=== PATIENT | male | born 1930 | race Caucasian/White ===

== ENCOUNTER 2017-04-09 23:28 | Emergency (ER) | payer MEDICARE, BC ==
[~2017-04-09] VITALS: Ht 182.9 cm; Wt 75.0 kg
[~2017-04-09 23:28] MED LIST: ASPI81 PO; FENO160T2 PO; METO25 PO; ROSU40 PO; VITA10002 PO
[2017-04-09 23:43] VITALS: BP 156/68; PULSE 64; RESP 16; TEMP 99.1; O2SAT 100
[2017-04-10] MEDS ORDERED: SODIUM CHLORIDE 0.9% FLUSH 5 ML FLUSH IV FLUSH PRN (00:15)
[2017-04-10 00:19] VITALS: RESP 16
--- NOTE | 2017-04-10 00:25 | PD ---
HPI Chief Complaint: Neuro Symptoms/ Deficits Time Seen by Provider: 00:13 Travel History International Travel<30 days: No Contact w/Intl Traveler<30days: No Traveled to known affect area: No History of Present Illness HPI 87-year-old male patient presents to the ER brought in by EMS, apparently his significant other stated to EMS that he has not been behaving normally, more disoriented than usual. Patient himself states that he has been dizzy but denies any other issues. He denies any fevers, vomiting, abdominal pain, chest pains, shortness of breath, or any other symptoms. Modifying Factors: None Associated Signs & Symptoms: Altered mental status Risk Factors: Elderly PFSH Past Medical History Anemia: Yes Arthritis: Yes Asthma: No Autoimmune Disease: No Blood Disorders: No Heart Rhythm Problems: Yes Cancer: No Cardiovascular Problems: Yes High Cholesterol: Yes Chest Pain: Yes COPD: No Coronary Artery Disease: Yes Diabetes: No Diminished Hearing: Yes (BILAT HEARING AIDS) Endocrine: No Gastrointestinal Disorders: No Genitourinary: Yes Hypertension: Yes Immune Disorder: No Inguinal Hernia: Yes (BILAT) Musculoskeletal: Yes Neurologic: No Psychiatric: No Reproductive: No Respiratory: No Immunizations Current: Yes Pneumonia: Yes Shingles: Yes Sleep Apnea: No Thyroid Disease: No Tetanus Vaccination: < 5 Years Influenza Vaccination: Yes Past Surgical History Abdominal Surgery: Yes (DOUBLE HERNIA) Cardiac Surgery: Yes (X 2 ANGIOPLASTY) Endocrine Surgery: No Genitourinary Surgery: Yes (SCRAPING OF THE PROSTATE) Insulin Pump: No 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) Neurologic Surgery: No Thoracic Surgery: No Other Surgery: Yes (BILAT SHOUDERS) Social History Alcohol Use: No Tobacco Use: No (QUIT 45+ YRS 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) Substance Use: No Allergies-Medications (Allergen,Severity, Reaction): Coded Allergies: gatifloxacin (Unverified Allergy, Severe, HIVES, 04/09/17) ibuprofen (Unverified Allergy, Severe, Hives, 04/09/17) salsalate (Unverified Allergy, Severe, Hives, 04/09/17) bacitracin (Unverified Allergy, Unknown, 04/09/17) gramicidin D (Unverified Allergy, Unknown, 04/09/17) metronidazole (Unverified Allergy, Unknown, 04/09/17) neomycin (Unverified Allergy, Unknown, 04/09/17) polymyxin B (Unverified Allergy, Unknown, 04/09/17) Reported Meds & Prescriptions Reported Meds & Active Scripts Active Review of Systems ROS Limitations: Altered Mental Status Physical Exam Narrative GENERAL: Well-developed elderly white male patient currently in no acute distress. Awake, alert, not oriented. SKIN: Focused skin assessment warm/dry. HEAD: Atraumatic. Normocephalic. EYES: Pupils equal and round. No scleral icterus. No injection or drainage. ENT: No nasal bleeding or discharge. Mucous membranes pink and moist. NECK: Trachea midline. No JVD. CARDIOVASCULAR: Regular rate and rhythm. No murmur appreciated. RESPIRATORY: No accessory muscle use. Clear to auscultation. Breath sounds equal bilaterally. GASTROINTESTINAL: Abdomen soft, non-tender, nondistended. Hepatic and splenic margins not palpable. MUSCULOSKELETAL: No obvious deformities. No clubbing. No cyanosis. No edema. NEUROLOGICAL: Awake and alert. No obvious cranial nerve deficits. Motor grossly within normal limits. Normal speech. PSYCHIATRIC: Appropriate mood and affect; insight and judgment normal. Data Data Last Documented VS Vital Signs Date Time Temp Pulse Resp B/P (MAP) Pulse Ox O2 Delivery O2 Flow Rate FiO2 04/10/17 00:19 16 04/09/17 23:43 99.1 64 156/68 (97) 100 Orders Orders Complete Blood Count With Diff (04/10/17 00:13) Comprehensive Metabolic Panel (04/10/17 00:13) Creatine Kinase (Cpk) (04/10/17 00:13) Prothrombin Time / Inr (Pt) (04/10/17 00:13) Act Partial Throm Time (Ptt) (04/10/17 00:13) Troponin I (04/10/17 00:13) Urinalysis - C+S If Indicated (04/10/17 00:13) Blood Culture (04/10/17 00:13) Chest, Single Ap (04/10/17 00:13) Ct Brain W/O Iv Contrast(Rout) (04/10/17 00:13) Blood Glucose (04/10/17 00:13) Ecg Monitoring (04/10/17 00:13) Iv Access Insert/Monitor (04/10/17 00:13) Oximetry (8/28/17 00:13) Sodium Chloride 0.9% Flush (Ns Flush) (04/10/17 00:15) CKMB (04/10/17 00:30) CKMB% (04/10/17 00:30) Labs Laboratory Tests Test 04/10/17 00:30 04/10/17 02:45 White Blood Count 8.1 TH/MM3 Red Blood Count 4.47 MIL/MM3 Hemoglobin 11.6 GM/DL Hematocrit 35.3 % Mean Corpuscular Volume 79.0 FL Mean Corpuscular Hemoglobin 26.1 PG Mean Corpuscular Hemoglobin Concent 33.0 % Red Cell Distribution Width 16.0 % Platelet Count 283 TH/MM3 Mean Platelet Volume 8.3 FL Neutrophils (%) (Auto) 60.6 % Lymphocytes (%) (Auto) 23.4 % Monocytes (%) (Auto) 8.1 % Eosinophils (%) (Auto) 6.8 % Basophils (%) (Auto) 1.1 % Neutrophils # (Auto) 4.9 TH/MM3 Lymphocytes # (Auto) 1.9 TH/MM3 Monocytes # (Auto) 0.7 TH/MM3 Eosinophils # (Auto) 0.5 TH/MM3 Basophils # (Auto) 0.1 TH/MM3 CBC Comment DIFF FINAL Differential Comment Prothrombin Time 11.6 SEC Prothromb Time International Ratio 1.0 RATIO Activated Partial Thromboplast Time 33.6 SEC Blood Urea Nitrogen 18 MG/DL Creatinine 1.20 MG/DL Random Glucose 98 MG/DL Total Protein 7.1 GM/DL Albumin 3.6 GM/DL Calcium Level 9.0 MG/DL Alkaline Phosphatase 194 U/L Aspartate Amino Transf (AST/SGOT) 31 U/L Alanine Aminotransferase (ALT/SGPT) 21 U/L Total Bilirubin 0.6 MG/DL Sodium Level 135 MEQ/L Potassium Level 4.1 MEQ/L Chloride Level 101 MEQ/L Carbon Dioxide Level 27.5 MEQ/L Anion Gap 7 MEQ/L Estimat Glomerular Filtration Rate 58 ML/MIN Total Creatine Kinase 539 U/L Creatine Kinase MB 2.1 NG/ML Creatine Kinase MB % 0.4 % Troponin I LESS THAN 0.02 NG/ML Urine Color YELLOW Urine Turbidity CLEAR Urine pH 6.5 Urine Specific [place] 1.022 Urine Protein NEG mg/dL Urine Glucose (UA) NEG mg/dL Urine Ketones NEG mg/dL Urine Occult Blood NEG Urine Nitrite NEG Urine Bilirubin NEG Urine Urobilinogen LESS THAN 2.0 MG/DL Urine Leukocyte Esterase NEG Urine WBC 1 /hpf Microscopic Urinalysis Comment CATH-CULT NOT IND MDM Medical Decision Making Medical Screen Exam Complete: Yes Emergency Medical Condition: Yes Medical Record Reviewed: Yes Interpretation(s) EKG shows NSR, no ST elevation or depression, and no arrhythmias. No significant T-wave inversions. Laboratory Tests Test 04/10/17 00:30 04/10/17 02:45 Red Blood Count 4.47 MIL/MM3 (4.50-5.90) Hemoglobin 11.6 GM/DL (13.0-17.0) Hematocrit 35.3 % (39.0-51.0) Mean Corpuscular Volume 79.0 FL (80.0-100.0) Mean Corpuscular Hemoglobin 26.1 PG (27.0-34.0) Monocytes (%) (Auto) 8.1 % (0.0-8.0) Eosinophils (%) (Auto) 6.8 % (0.0-4.0) Eosinophils # (Auto) 0.5 TH/MM3 (0-0.4) Activated Partial Thromboplast Time 33.6 SEC (24.3-30.1) Alkaline Phosphatase 194 U/L (45-117) Sodium Level 135 MEQ/L (136-145) Estimat Glomerular Filtration Rate 58 ML/MIN (>89) Total Creatine Kinase 539 U/L (39-308) Troponin I LESS THAN 0.02 NG/ML Last [address] 04/10/1712 Signed Impressions: Service Date/Time: Monday, April 10, 2017 00:40 - CONCLUSION: 1. No acute intracranial abnormality is identified. Chronic changes including moderate generalized atrophy and periventricular white matter low attenuation. 2. Stable but abnormal appearance of the skull with a thickening, increased density, and numerable sclerotic foci. Some considerations include myeloma, metastatic disease, or blood disorders. Andrew Ansari MD Chest X-Ray 04/10/1712 Signed Impressions: Service Date/Time: Monday, April 10, 2017 00:39 - CONCLUSION: No acute cardiopulmonary abnormality is identified. Andrew Ansari MD Differential Diagnosis Altered mental status: dementia versus metabolic issues versus dehydration versus sepsis versus acute intracranial processes Narrative Course Lab work, x-ray and CAT scans did not reveal any signs of obvious acute processes. At this point, patient is awake and alert, denies any dizziness on reevaluation at 3 AM. Vital signs are stable. My plan would be to release the patient with follow-up to primary care physician. Return for any worsening in symptoms as needed. The plan has been discussed with him and he states understanding. Diagnosis Primary Impression: Dizziness Disposition: 01 DISCHARGE HOME Condition: Stable Clark Veras MD Apr 10, 2017 00:25
[2017-04-10 00:46] LABS: AUTOMATED NEUTROPHIL # 4.9 TH/MM3 (1.8-7.7); BASOPHIL # 0.1 TH/MM3 (0-0.2); BASOPHIL % 1.1 % (0.0-2.0); EOSINOPHIL # 0.5 TH/MM3 (0-0.4); EOSINOPHIL % 6.8 % (0.0-4.0); HEMATOCRIT 35.3 % (39.0-51.0); HEMO FLAGS DIFF FINAL; LYMPH % 23.4 % (9.0-44.0); LYMPHOCYTE # 1.9 TH/MM3 (1.0-4.8); MEAN CORPUSCULAR HEMOGLOBIN 26.1 PG (27.0-34.0); MONO % 8.1 % (0.0-8.0); NEUT % 60.6 % (16.0-70.0); PLATELET COUNT 283 TH/MM3 (150-450); RED BLOOD COUNT 4.47 MIL/MM3 (4.50-5.90); WHITE BLOOD COUNT 8.1 TH/MM3 (4.0-11.0)
--- NOTE | 2017-04-10 00:49 | RADRPT ---
EXAM DATE/TIME: 04/10/2017 00:39 [facility] COMPARISON: No previous studies available for comparison. INDICATIONS : Chest pain. MEDICAL HISTORY : None. SURGICAL HISTORY : None. ENCOUNTER: Initial ACUITY: 1 day PAIN SCORE: 0/10 LOCATION: Bilateral chest FINDINGS: Portable AP view of the chest demonstrates a normal-sized cardiac silhouette. No effusion, consolidat ion, or pneumothorax is visualized. The bones and soft tissues demonstrate no acute abnormality. Lung s are underinflated. There is left hilar calcification versus calcification associated with the aorta . CONCLUSION: No acute cardiopulmonary abnormality is identified. Andrew Ansari MD on April 10, 2017 at 0:47 Board Certified Radiologist. This report was verified electronically.
[2017-04-10 00:55] LABS: APTT (PATIENT) 33.6 SEC (24.3-30.1); PROTHROMBIN TIME - PATIENT 11.6 SEC (9.8-11.6)
--- NOTE | 2017-04-10 00:57 | RADRPT ---
EXAM DATE/TIME: 04/10/2017 00:40 [facility] COMPARISON: CT BRAIN W/O CONTRAST, July 21, 2014, 14:23. INDICATIONS : Altered mental status, confusion. RADIATION DOSE: 31.50 CTDIvol (mGy) MEDICAL HISTORY : Cardiovascular disease. Hypertension. Hernia, inguinal. SURGICAL HISTORY : None. ENCOUNTER: Initial ACUITY: 1 day PAIN SCALE: 0/10 LOCATION: cranial TECHNIQUE: Multiple contiguous axial images were obtained of the head. Using automated exposure control and adj ustment of the mA and/or kV according to patient size, radiation dose was kept as low as reasonably a chievable to obtain optimal diagnostic quality images. DICOM format image data is available electro nically for review and comparison. FINDINGS: CEREBRUM: There is moderate generalized atrophy. Ventricles are normal in size given the degree of atrophy. The re is mild periventricular white matter low attenuation. No evidence of midline shift, mass lesion, hemorrhage or acute infarction. No extra-axial fluid collections are seen. POSTERIOR FOSSA: The cerebellum and brainstem demonstrate no acute finding. The 4th ventricle is midline. The cerebe llopontine angle is unremarkable. EXTRACRANIAL: There is mucoperiosteal thickening within the right maxillary antrum. SKULL: No fracture. However, there is abnormal increased density of the skull with numerable sclerotic foci and mild thickening. Findings are stable. CONCLUSION: 1. No acute intracranial abnormality is identified. Chronic changes including moderate generalized at rophy and periventricular white matter low attenuation. 2. Stable but abnormal appearance of the skull with a thickening, increased density, and numerable sc lerotic foci. Some considerations include myeloma, metastatic disease, or blood disorders. Adnrew Ansari MD on April 10, 2017 at 0:51 Board Certified Radiologist. This report was verified electronically.
[2017-04-10 01:00] LABS: ANION GAP 7 MEQ/L (5-15); AST (GOT) 31 U/L (15-37); BICARBONATE 27.5 MEQ/L (21.0-32.0); BLOOD UREA NITROGEN 18 MG/DL (7-18); CHLORIDE 101 MEQ/L (98-107); GLOMERULAR FILTRATION RATE 58 ML/MIN (>89); POTASSIUM 4.1 MEQ/L (3.5-5.1); SODIUM (NA) 135 MEQ/L (136-145)
[2017-04-10 01:01] LABS: ALT (GPT) 21 U/L (12-78)
[2017-04-10 01:05] LABS: ALKALINE PHOSPHATASE 194 U/L (45-117); CREATINE KINASE 539 U/L (39-308); TOTAL BILIRUBIN ADULT 0.6 MG/DL (0.2-1.0)
[2017-04-10 01:18] LABS: CKMB 2.1 NG/ML (0.5-3.6)
[2017-04-10 03:01] LABS: BLOOD, URINE NEG (NEG); GLUCOSE,URINE NEG (NEG); KETONE, URINE NEG (NEG); NITRITE,URINE NEG (NEG); PH, URINE 6.5 (5.0-8.5); URINE COLOR YELLOW (YELLW/STRAW)
[2017-04-10 03:06] LABS: COMMENT (UR) CATH-CULT NOT IND; CULTURE IF INDICATED CATH CULTURE NOT IND
--- NOTE | 2017-04-10 14:33 | EKG ---
Date Performed: 04/10/2017 Time Performed: 00:04:18 PTAGE: 87 years EKG: Sinus rhythm NORMAL ECG Compared to prior tracing no significant change PREVIOUS TRACING : 07/21/2014 14.14.24 DOCTOR: Bryan Tidwell Interpretating Date/Time 04/10/2017 14:28:06
== END 2017-04-10 05:47 | disposition home or self-care (01) ==
LOC: NEPC 23:28
DX: R42 Dizziness and giddiness (principal); I10 Essential (primary) hypertension; E78.00 Pure hypercholesterolemia, unspecified; M19.90 Unspecified osteoarthritis, unspecified site; Z85.46 Personal history of malignant neoplasm of prostate; R07.9 Chest pain, unspecified
CPT/HCPCS: 70450; 71010; 80053; 81001; 82550; 82552; 84484; 85025; 85610; 85730; 87040; 93005; 99285

== ENCOUNTER 2017-06-19 13:39 | Emergency (ER) | payer MEDICARE, BC ==
[~2017-06-19] VITALS: Ht 171.4 cm; Wt 68.8 kg
[2017-06-19 13:44] VITALS: BP 120/71; PULSE 75; RESP 20; TEMP 97.6; O2SAT 96
[2017-06-19] MEDS ORDERED: FENO160T PO (13:59)
[2017-06-19] MEDS ORDERED: ROSU1TAB8 PO (13:59)
[2017-06-19] MEDS ORDERED: ASPI81TA23 PO (13:59)
[2017-06-19] MEDS ORDERED: METO25TA3 PO (13:59)
[2017-06-19] MEDS ORDERED: CYAN100025 SL (13:59)
[2017-06-19] MEDS ORDERED: ROBA500T PO (14:11)
--- NOTE | 2017-06-19 14:11 | PD ---
HPI Chief Complaint: Back/ Neck Pain or Injury Time Seen by Provider: 14:02 Travel History International Travel<30 days: No Contact w/Intl Traveler<30days: No Traveled to known affect area: No History of Present Illness HPI 87-year-old male presents to emergency Department with complaint of right upper back/ scapula pain that he woke up with this morning at 4 AM. He was lifting and moving a lot of crispness boxes yesterday. Denies chest pain, shortness of breath, fever, vomiting, abdominal pain. Has tried topical muscle rub and a heating pad for symptomatic management. The heating pad helped a little. Pain is worse with movement of the right arm and palpation of that area. Pain is decreased while at rest. Rates the pain 6/10. Dr. Santy Rogers is primary care provider. History of hypercholesterolemia. Denies other significant past medical history. Multiple allergies as listed on the patient's chart. Has no other medical complaints. No other modifying factors or associated signs and symptoms. PFSH Past Medical History Hx Anticoagulant Therapy: Yes (ASA) Anemia: Yes Arthritis: Yes Asthma: No Autoimmune Disease: No Blood Disorders: No Heart Rhythm Problems: Yes Cancer: No Cardiovascular Problems: Yes High Cholesterol: Yes Chest Pain: Yes COPD: No Coronary Artery Disease: Yes Diabetes: No Diminished Hearing: Yes (BILAT HEARING AIDS) Endocrine: No Gastrointestinal Disorders: No Genitourinary: Yes Hypertension: Yes Immune Disorder: No Inguinal Hernia: Yes (BILAT) Musculoskeletal: Yes Neurologic: No Psychiatric: No Reproductive: No Respiratory: No Immunizations Current: Yes (shingles also) Pneumonia: Yes Shingles: Yes Sleep Apnea: No Thyroid Disease: No Tetanus Vaccination: < 5 Years Influenza Vaccination: Yes Past Surgical History Abdominal Surgery: Yes (DOUBLE HERNIA) Cardiac Surgery: Yes (X 2 ANGIOPLASTY stent) Endocrine Surgery: No Genitourinary Surgery: Yes (SCRAPING OF THE PROSTATE) Insulin Pump: No 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) Neurologic Surgery: No Thoracic Surgery: No Other Surgery: Yes (BILAT SHOUDERS toe amputation) Social History Alcohol Use: No Tobacco Use: No (QUIT 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) Substance Use: No Allergies-Medications (Allergen,Severity, Reaction): Coded Allergies: gatifloxacin (Unverified Allergy, Severe, HIVES, 06/19/17) ibuprofen (Unverified Allergy, Severe, Hives, 06/19/17) salsalate (Unverified Allergy, Severe, Hives, 06/19/17) bacitracin (Unverified Allergy, Unknown, 06/19/17) gramicidin D (Unverified Allergy, Unknown, 06/19/17) metronidazole (Unverified Allergy, Unknown, 06/19/17) neomycin (Unverified Allergy, Unknown, 06/19/17) polymyxin B (Unverified Allergy, Unknown, 06/19/17) Reported Meds & Prescriptions Reported Meds & Active Scripts Active Robaxin (Methocarbamol) 500 Mg Tab 500 Mg PO QID Reported Rosuvastatin (Rosuvastatin Calcium) 20 Mg Tab 20 Mg PO DAILY Fenofibrate 160 Mg Tab 160 Mg PO DAILY B-12 (Cyanocobalamin) 1,000 Mcg Subl 1,000 Mcg SL DAILY Metoprolol Tartrate 25 Mg Tab 12.5 Mg PO DAILY Aspirin EC (Aspirin) 81 Mg Tabdr 81 Mg PO DAILY Review of Systems Except as stated in HPI: all other systems reviewed are Neg Physical Exam Narrative GENERAL: Well-nourished, well-developed elderly, male patient, in no acute distress; afebrile, nontoxic-appearing SKIN: Warm and dry. HEAD: Atraumatic. Normocephalic. EYES: Pupils equal and round. No scleral icterus. No injection or drainage. ENT: Mucosa pink and moist. Airway patent. NECK: Trachea midline. CARDIOVASCULAR: Regular rate and rhythm. No murmur appreciated. RESPIRATORY: No accessory muscle use. Clear to auscultation. Breath sounds equal bilaterally. GASTROINTESTINAL: Rounded. MUSCULOSKELETAL: Right upper extremity is supple and non-tense with 2+ radial pulses and sensory intact without erythema or edema and with full range of motion and ultrasound tech strength. No obvious deformities. No clubbing. No cyanosis. No edema. BACK: Reproducible tenderness to the right upper trapezius muscle just between the thoracic spine and the scapula. No rash noted. NEUROLOGICAL: Awake and alert. Oriented 3. No obvious cranial nerve deficits. Motor grossly within normal limits. Normal speech. PSYCHIATRIC: Appropriate mood and affect; insight and judgment normal. Data Data Last Documented VS Vital Signs Date Time Temp Pulse Resp B/P (MAP) Pulse Ox O2 Delivery O2 Flow Rate FiO2 06/19/17 13:44 97.6 75 20 120/71 (87) 96 Orders Orders Methocarbamol (Robaxin) (06/19/17 14:15) Ed Discharge Order (06/19/17 14:11) [facility] Medical Decision Making Medical Screen Exam Complete: Yes Emergency Medical Condition: Yes Medical Record Reviewed: Yes Differential Diagnosis Muscle spasm, muscle strain of back, medical clearance Narrative Course 87-year-old male physical exam and history of present illness consistent with muscle spasm of the right trapezius muscle. Patient is afebrile and nontoxic- appearing. Denies fever, vomiting. Denies chest pain or shortness of breath. Pain is reproducible on palpation and movement of the right arm. No rash noted to the area. Robaxin administered in the ER. Robaxin prescribed for home. Instructed patient to follow up with primary care provider. Patient verbalizes understanding and agreement with treatment plan. Patient is medically cleared and stable for discharge. Discussed reasons to return to the emergency department. Patient agrees with treatment plan. The patients vital signs are stable and the patient is stable for outpatient follow-up and treatment. Patient discharged home, stable and in no acute distress. Diagnosis Primary Impression: Trapezius muscle spasm Referrals: Primary Care Physician Patient Instructions: General Instructions, Muscle Spasm (ED), Muscle Strain ( ED) Additional Instructions: Tylenol as directed and as needed for pain Robaxin as prescribed and as needed for muscle spasms Heating pad and/or ice to affected area to reduce pain Avoid aggravating activities; increase activity as tolerated Follow-up with primary care provider Return to emergency department immediately with worsening of symptoms Med/Other Pt SpecificInfo: Prescription(s) given Scripts Methocarbamol (Robaxin) 500 Mg Tab 500 MG PO QID for Muscle Spasm, #20 TAB 0 Refills Prov: Delfina Mosqueda 06/19/17 Disposition: 01 DISCHARGE HOME Condition: Stable Delfina Mosqueda Jun 19, 2017 14:11
[2017-06-19] MEDS ORDERED: METHOCARBAMOL 500 MG TAB PO ONE (14:15)
== END 2017-06-19 14:29 | disposition home or self-care (01) ==
LOC: PHEFT 13:39
DX: M62.830 Muscle spasm of back (principal); I10 Essential (primary) hypertension; I25.10 Atherosclerotic heart disease of native coronary artery without angina pectoris; E78.00 Pure hypercholesterolemia, unspecified; Z79.82 Long term (current) use of aspirin; Z79.899 Other long term (current) drug therapy; Z88.6 Allergy status to analgesic agent
CPT/HCPCS: 99283